=== PATIENT | male | born 1940 | race Caucasian/White ===

== ENCOUNTER 2024-12-15 19:00 | Emergency (ER) | payer OTHER, SELFPAY ==
[2024-12-15 19:00] VITALS: BP 169/69; PULSE 60; RESP 18; TEMP 36.4; O2SAT 96
--- NOTE | 2024-12-15 19:00 | RT.EKG_ITS ---
APPROVED REPORT Exam: Resting ECG Reason for Exam: Weakness Patient Location: E HR:62 bpm ECG Measurements Heart Rate 62 AXIS CA 198 P 52 QRSd 93 QRS -14 QT 474 T 24 QTc 480 Conclusion Sinus rhythm...normal P axis, V-rate 60- 99 Inferior infarct, old...Q >35mS, II III aVF sinus rhythm, left axis, normal intervals non ischemic
--- NOTE | 2024-12-15 19:15 | DI.CT_ITS ---
Exam(s) CT BRAIN NECK CTA EXAM: CT BRAIN NECK CTA CLINICAL HISTORY: dizzy, fall. TECHNIQUE: Imaging Protocol: Axial CT angiography was performed with multi- slice acquisition and multi-planar and/or 3D reconstructions. CONTRAST MATERIAL: Intravenous: Omnipaque 350 contrast volume:70 mL COMPARISON: No exams were available for comparison FINDINGS: CT Head W/O and W: Ventricles and Extra axial spaces: Normal in size and morphology for the patient's age. Hemorrhage: None. Cerebral parenchyma: There is no evidence of an acute territorial infarct. No acute mass effect is present. Midline shift: None. Brainstem/Cerebellum: Normal. Calvarium: Normal. Visualized Paranasal sinuses/Mastoids: Very mild mucosal thickening is seen. The mastoid air cells are clear. Soft Tissues: Unremarkable. Enhancement: Unremarkable. CTA Neck W: Common Carotid: Right: No dissection, occlusion or significant stenosis. Minimal atherosclerotic calcification is seen at the bifurcation. Left: No dissection, occlusion or significant stenosis. There is minimal atherosclerotic calcification at the bifurcation. External Carotid: Right: No occlusion or significant stenosis. Left: No occlusion or significant stenosis. Internal Carotid: Right: No dissection, occlusion or significant stenosis. Left: No dissection, occlusion or significant stenosis. Vertebral Artery: Right: No dissection, occlusion or significant stenosis. Left: No dissection, occlusion or significant stenosis. Lung Apices: Normal. Bones: Within normal limits for the patient's age. 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 Thyroid gland: Unremarkable. CTA Brain W: Internal Carotid Arteries: Mild atherosclerotic calcification is seen bilaterally in the cavernous portion of the internal carotid arteries, but no significant stenosis is present. There is no occlusion or aneurysm. Anterior Cerebral Arteries: Right: No aneurysm, occlusion or significant stenosis. Left: No aneurysm, occlusion or significant stenosis. Middle Cerebral Arteries: Right: No aneurysm, occlusion or significant stenosis. Left: No aneurysm, occlusion or significant stenosis. Posterior Cerebral Arteries: The left posterior cerebral artery arises from the posterior communicating artery which is a normal variant. Right: No aneurysm, occlusion or significant stenosis. Left: No aneurysm, occlusion or significant stenosis. Vertebral Arteries: Right: No aneurysm, occlusion or significant stenosis. Left: No aneurysm, occlusion or significant stenosis. Basilar Artery: No aneurysm, occlusion or significant stenosis. IMPRESSION: 1. No large vessel occlusion or significant stenosis on the CT angiography of the head. 2. No acute intracranial process. 3. No occlusion or significant stenosis on the CT angiography of the neck. 4. The preliminary [facility] report was reviewed. RADIATION DOSE DELIVERED: 2,215.9mGy.cm Total DLP DATA REPOSITORY: All CT scans at this facility are submitted to the National Radiology Data Registry (NRDR) Dose Index Registry (DIR) with the [employer] ([employer]). RADIATION OPTIMIZATION: All CT scans at this facility use at least one of these dose optimization techniques: automated exposure control; mA and/or kV adjustment per patient size (includes targeted exams where dose is matched to clinical indication); or iterative reconstruction.
--- NOTE | 2024-12-15 19:15 | DI.RAD_ITS ---
Exam(s) XR CHEST 2V PA LATERAL EXAM: XR CHEST 2V PA LATERAL CLINICAL HISTORY: dizzy fall TECHNIQUE: 2D digital imaging was performed of the chest. Three images were obtained. AP and lateral views were obtained. COMPARISON: No exams were available for comparison FINDINGS: MEDIASTINUM: Normal. HEART: Normal. PULMONARY VASCULATURE: Normal. LUNGS: Clear. PLEURAL SPACE: No pleural effusion or pneumothorax. BONE:Within normal limits for the patient's age. OTHER FINDINGS:Normal. IMPRESSION: 1. No acute pulmonary findings. 2. The preliminary [facility] report was reviewed. DATA REPOSITORY: RADIATION DOSE DELIVERED:
--- NOTE | 2024-12-15 19:22 | W.ED.GENAD ---
Discharge Plan Disposition Patient Disposition: Home Condition: Improving Discharge Details Clinical Impression: Weakness Primary Care Provider: Unknown,Unknown ED Provider: Heraclio Tse Home Meds and New Rx's Prescriptions: No Action allopurinol 200 mg tablet 200 mg PO DAILY amlodipine 10 mg tablet 10 mg PO DAILY cetirizine 10 mg tablet 10 mg PO BID duloxetine 60 mg capsule, delayed rel sprinkle 60 mg PO DAILY chlorthalidone 12.5 mg tablet 12.5 mg PO DAILY famotidine 20 mg tablet 20 mg PO BID levothyroxine 75 mcg capsule 75 mcg PO DAILY colchicine 0.6 mg capsule 0.6 mg PO DAILY PRN (Reason: gout flare) metformin 500 mg tablet 500 mg PO BID pravastatin 40 mg tablet 40 mg PO DAILY pregabalin 150 mg capsule 150 mg PO BID omeprazole 20 mg capsule,delayed release(DR/EC) 20 mg PO BID mirtazapine 45 mg tablet 45 mg PO QHS tadalafil [Cialis] 20 mg tablet 20 mg PO DAILY PRN (Reason: sexual activity) tamsulosin 0.4 mg capsule 0.4 mg PO DAILY carboxymethylcellulose sodium [Refresh Tears] 0.5 % drops 1 drp ophthalmic (eye) QID naproxen 250 mg tablet 250 mg PO BID PRN (Reason: pain) acetaminophen 500 mg capsule 1,000 mg PO TID PRN (Reason: pain) Discharge Instructions Instructions: Weakness Additional Instructions: Please follow-up with your primary care physician. Please return to the Emergency Department for any worsening symptoms HPI General Date/Time Provider Initiated Documentation: 12/15/24 19:01. HPI Narrative: 84-year-old male history of hypertension hyperlipidemia presents after fall patient felt dizzy and fell backwards hitting the back of his head no loss of consciousness. Denies chest pain shortness of breath nausea or vomiting. Related Data Home Medications ?Medication ?Instructions ?Recorded ?Confirmed acetaminophen 500 mg capsule 1,000 mg PO TID PRN pain 12/15/24 12/15/24 allopurinol 200 mg tablet 200 mg PO DAILY 12/15/24 12/15/24 amlodipine 10 mg tablet 10 mg PO DAILY 12/15/24 12/15/24 carboxymethylcellulose sodium 0.5 1 drp ophthalmic (eye) QID 12/15/24 12/15/24 % eye drops (Refresh Tears) cetirizine 10 mg tablet 10 mg PO BID 12/15/24 12/15/24 chlorthalidone 12.5 mg tablet 12.5 mg PO DAILY 12/15/24 12/15/24 colchicine 0.6 mg capsule 0.6 mg PO DAILY PRN gout flare 12/15/24 12/15/24 duloxetine 60 mg capsule,delayed 60 mg PO DAILY 12/15/24 12/15/24 release sprinkle famotidine 20 mg tablet 20 mg PO BID 12/15/24 12/15/24 levothyroxine 75 mcg capsule 75 mcg PO DAILY 12/15/24 12/15/24 metformin 500 mg tablet 500 mg PO BID 12/15/24 12/15/24 mirtazapine 45 mg tablet 45 mg PO QHS 12/15/24 12/15/24 naproxen 250 mg tablet 250 mg PO BID PRN pain 12/15/24 12/15/24 omeprazole 20 mg capsule,delayed 20 mg PO BID 12/15/24 12/15/24 release pravastatin 40 mg tablet 40 mg PO DAILY 12/15/24 12/15/24 pregabalin 150 mg capsule 150 mg PO BID 12/15/24 12/15/24 tadalafil 20 mg tablet (Cialis) 20 mg PO DAILY PRN sexual activity 12/15/24 12/15/24 tamsulosin 0.4 mg capsule 0.4 mg PO DAILY 12/15/24 12/15/24 Allergies Allergy/AdvReac Type Severity Reaction Status Date / Time atorvastatin (From Lipitor) Allergy Unknown Unknown Verified 12/15/24 19:07 General Stated Complaint: Fall/Non TraumaCriteria LUCILLE: 3 Exam Narrative Exam Narrative: General: alert, no acute distress HEENT: normocephalic, atraumatic, neck supple, pupils equal round reactive to light, moist mucous membranes, tolerating secretions, normal voice, no rhinorrhea or otorrhea Respiratory: normal respiratory effort, lungs clear bilaterally, no wheezes rales or rhonchi Cardiac: regular rate and rhythm, no murmurs rubs or gallops; equal pulses bilaterally, warm well perfused Abdominal: soft, nontender, nondistended; no organomegaly or palpable masses MSK: normal range of motion of extremities, warm, well perfused Skin: warm, dry, no rashes or lesions Neuro: AAOx3, CN II-XII intact, 5/5 strength bilateral upper and lower extremities, normal speech, no ataxia Psych: normal mood, normal affect, calm, cooperative Course Vital Signs Vital signs: Vital Signs Temperature 36.4 C L 12/15/24 19:00 Pulse 60 12/15/24 19:00 Respiratory Rate 18 12/15/24 19:00 Blood Pressure 169/69 H 12/15/24 19:00 Pulse Oximetry 96 12/15/24 19:00 Temperature 36.4 C L 12/15/24 19:00 Pulse 60 12/15/24 19:00 Respiratory Rate 18 12/15/24 19:00 Blood Pressure 169/69 H 12/15/24 19:00 Pulse Oximetry 96 12/15/24 19:00 Oxygen Delivery Method Room Air 12/15/24 19:00 Oxygen Flow Rate 0 12/15/24 19:00 Pain Level 6 12/15/24 19:00 Medical Decision Making 84-year-old male history of hypertension hyperlipidemia presents after fall from standing after feeling acutely dizzy at home fell backwards hit his head no loss of consciousness, patient alert oriented interactive EKG normal sinus rhythm normal axis no acute ischemic changes, noted to be mildly hypertensive normal heart rate afebrile nontoxic nonmeningeal no back neck thoracic or abdominal findings on examination full range of motion cranial nerves intact normal speech no truncal ataxia no focal motor deficits, consider vasovagal versus orthostatic syncope versus electrolyte derangement versus hypovolemia patient does have some evidence of dry oromucosa and skin, muscles consider arrhythmia versus ACS lower special for PE or aortic pathology low special for CVA given nonfocal on examination however given age history will obtain CT CTA head and neck, basic labs, troponin, chest x-ray, trial of light fluid patient resting comfortably asymptomatic at this time. Telemetry: 22 resting comfortably no acute distress. Awaiting imaging results for disposition. 21: 58 patient resting comfortably asymptomatic. Neurologically intact. Hemodynamically stable. CT CTA head and neck unremarkable labs unremarkable. Patient does endorse some discomfort in bilateral 2nd and 3rd digits dorsally he did fall backwards with his hands above his head perhaps striking his fingers, patient does have full range of motion, sensation and strength median radial and ulnar nerve distribution intact good capillary refill strong radial pulses. No midline spinal tenderness. Likely contusion lower suspicion for neurovascular compromise. Patient and family feel comfortable going home. Given home care instructions and return precautions PFSH All Active Problems (Updated 12/15/24 @ 22:00 by Heraclio Tse MD) Weakness (Acute) Social History Smoking/Tobacco Use Status: Former Tobacco Use Smoking risk assessment performed?: Yes Alcohol Intake: never
[2024-12-15 19:36] LABS: Abs Immature Grans 0.11 10^3/uL (0.0-0.06); HCT 33.9 % (40.0-50.0); HGB 11.8 g/dL (13.5-17.5); Immature Grans % 1.6 %; MCH 32.2 pg (27.0-33.0); MCHC 34.8 % (32.0-36.0); MCV 92 fL (80-95); MPV 10.5 fL (8.0-11.0); Platelet Count 196 10^3/uL (130-400); RBC 3.67 10^6/uL (4.36-5.78); RDW 13.7 % (11.8-14.1); RDW-SD 46.5 fL; WBC 6.79 10^3/uL (4.4-10.8)
[2024-12-15 19:49] LABS: INR 1.1 (0.9-1.1); PTT Activated 26.1 sec (20.6-30.2); Prothrombin Time 10.9 sec (9.1-11.1)
[2024-12-15 19:54] LABS: ALT 30 U/L (16-63); AST 24 U/L (15-37); Albumin 3.5 g/dL (3.4-5.0); Alkaline Phosphatase 111 U/L (46-116); Anion Gap 12.1 mmol/L (3-11); BUN 17 mg/dL (7-18); Bilirubin, Total 0.5 mg/dL (0.2-1.0); CO2 24.9 mmol/L (21.0-32.0); Calcium 9.2 mg/dL (8.5-10.1); Chloride 100 mmol/L (98-107); Estimated GFR 67.02 (mL/min/1.73m2); Glucose 150 mg/dL (74-106); Potassium 3.3 mmol/L (3.5-5.1); Sodium 137 mmol/L (136-145); Total Protein 6.9 g/dL (6.4-8.2); Troponin I 5 ng/L (<or=76)
--- NOTE | 2024-12-15 20:06 | TELEP.MEDR_ITS ---
Date of service: 12/15/24 Time of Service: 20:06 [facility] Home Med Rec Allergies Allergies: atorvastatin (From Lipitor) Allergy (Unknown, Verified 12/15/24 19:07) Unknown Interview Person Interviewed: [facility] pharmacy after-hours line Quality Quality of Interview/Accuracy of Medication List: Excellent Sources Sources used to compile medication list: Other Changes made to Home Medication List: ADDITIONS: * acetaminophen * allopurinol * amlodipine * Refresh tears * cetirizine * chlorthalidone * colchicine * duloxetine * famotidine * levothyroxine * metformin * mirtazapine * naproxen * omeprazole * pravastatin * pregabalin * tadalafil * tamsulosin DELETIONS: None CHANGES: None Additional Notes Additional Notes: With patient's permission I called the [place] pharmacy (after-hours phone line) and retrieved his current medication list; all meds were added to his chart. Recommended Changes Attestation: The home medication list is now updated to the best of my knowledge and is ready to be reconciled by the provider. Please contact the [facility] Medication Reconciliation Pharmacist at for any questions.
--- NOTE | 2024-12-15 20:06 | TELEP.MEDREC ---
Date of service: 12/15/24 Time of Service: 20:06 Telepharmacy Home Med Rec Allergies Allergies: atorvastatin (From Lipitor) Allergy (Unknown, Verified 12/15/24 19:07) Unknown Interview Person Interviewed: [facility] pharmacy after-hours line Quality Quality of Interview/Accuracy of Medication List: Excellent Sources Sources used to compile medication list: Other Changes made to Home Medication List: ADDITIONS: acetaminophen allopurinol amlodipine Refresh tears cetirizine chlorthalidone colchicine duloxetine famotidine levothyroxine metformin mirtazapine naproxen omeprazole pravastatin pregabalin tadalafil tamsulosin DELETIONS: None CHANGES: None Additional Notes Additional Notes: With patient's permission I called the [place] pharmacy (after-hours phone line) and retrieved his current medication list; all meds were added to his chart. Recommended Changes Attestation: The home medication list is now updated to the best of my knowledge and is ready to be reconciled by the provider. Please contact the [facility] Medication Reconciliation Pharmacist at for any questions.
[2024-12-15] MEDS: Normal Saline 500 ML 1000 ML IV (20:16)
[2024-12-15] MEDS: Normal Saline - Diluent 50 ML VIAL IJ (20:29)
[2024-12-15] MEDS: Omnipaque 350 MG/ML 100 ML BTL IJ (20:29)
[2024-12-15 20:55] LABS: Troponin I 5 ng/L (<or=76)
[2024-12-15 21:23] LABS: Glucose Negative (Negative)
--- NOTE | 2024-12-15 21:43 | DI.[facility]_ITS ---
PROCEDURE INFORMATION: Exam: CTA Head Without And With Contrast, Arteriography Exam date and time: 12/15/2024 8:25 PM Age: 84 years old Clinical indication: Injury or trauma; Blunt trauma; Head; Dizziness and giddiness; Injury details: Dizzy, fall TECHNIQUE: Imaging protocol: Computed tomographic angiography of the head without and with contrast. Exam focused on the arteries. 3D rendering (Not supervised by radiologist): MIP and/or 3D reconstructed images were created by the technologist. Contrast material: OMNI 350; Contrast volume: 70 ml; Contrast route: INTRAVENOUS (IV); COMPARISON: No relevant prior studies available. FINDINGS: ANTERIOR CIRCULATION: Right internal carotid artery: Intracranial segment is patent with no significant stenosis or occlusion. No aneurysm. Right middle cerebral artery: No occlusion or significant stenosis. No aneurysm. Right anterior cerebral artery: No occlusion or significant stenosis. No aneurysm. Left internal carotid artery: Intracranial segment is patent with no significant stenosis. No aneurysm. Left middle cerebral artery: No occlusion or significant stenosis. No aneurysm. Left anterior cerebral artery: No occlusion or significant stenosis. No aneurysm. POSTERIOR CIRCULATION: Right vertebral artery: No occlusion or significant stenosis. No aneurysm. Left vertebral artery: No occlusion or significant stenosis. No aneurysm. Basilar artery: No occlusion or significant stenosis. No aneurysm. Right posterior cerebral artery: No occlusion or significant stenosis. No aneurysm. Left posterior cerebral artery: No occlusion or significant stenosis. No aneurysm. HEAD: Brain: No acute intracranial hemorrhage or mass lesions. No midline shift. Normal vasquez-white differentiation. There moderate are scattered deep and periventricular white matter changes likely associated with chronic microvascular ischemia. Cerebral ventricles: The ventricles and sulci are prominent suggesting volume loss greater than expected for patient age. Bones: Unremarkable. No acute fracture. Paranasal sinuses: Visualized sinuses are normal. No fluid levels. Mastoid air cells: Visualized mastoids are normal. No mastoid effusion. Salivary glands: The right submandibular gland is not visualized and is likely surgically absent. Soft tissues: Unremarkable. IMPRESSION: 1. No stenosis, occlusion, or aneurysm. 2. No acute intracranial findings. PROCEDURE INFORMATION: Exam: CTA Neck Without And With Contrast Exam date and time: 12/15/2024 8:25 PM Age: 84 years old Clinical indication: Injury or trauma; Blunt trauma; Head; Dizziness and giddiness; Injury details: Dizzy, fall TECHNIQUE: Imaging protocol: Computed tomographic angiography of the neck without and with contrast. Exam focused on the cervical segments of the vasculature. 3D rendering (Not supervised by radiologist): MIP and/or 3D reconstructed images were created by the technologist. Contrast material: OMNI 350; Contrast volume: 70 ml; Contrast route: INTRAVENOUS (IV); COMPARISON: No relevant prior studies available. FINDINGS: Right common carotid artery: No stenosis. No dissection or occlusion. Right internal carotid artery: No stenosis of the extracranial segment. No dissection or occlusion. Right external carotid artery: No occlusion or stenosis of the origin. Left common carotid artery: No stenosis. No dissection or occlusion. Left internal carotid artery: No stenosis of the extracranial segment. No dissection or occlusion. Left external carotid artery: No occlusion or stenosis of the origin. Right vertebral artery: No stenosis. No dissection or occlusion. Left vertebral artery: No stenosis. No dissection or occlusion. Soft tissues: Normal. No significant soft tissue swelling. Bones/joints: Mild degenerative changes are present within the cervical spine including intervertebral disc space narrowing, endplate sclerosis, and osteophytosis. Lungs: The pulmonary apices are clear. There is mild centrilobular emphysema at the right pulmonary apex. IMPRESSION: No stenosis, occlusion, or aneurysm. REFERENCES: NASCET CRITERIA. The degree of stenosis in the cervical segment of the internal carotid artery is based on NASCET criteria. Normal is no stenosis. Mild is less than 50% stenosis. Moderate is 50-69% stenosis. Severe is 70% to 99% stenosis. Total occlusion is no detectable patent lumen. Dictated and Authenticated by: Elysia Izaguirre MD. Orderin Dedrick Pulliam MD
--- NOTE | 2024-12-15 21:44 | DI.[facility]_ITS ---
PROCEDURE INFORMATION: Exam: XR Chest Exam date and time: 12/15/2024 8:44 PM Age: 84 years old Clinical indication: Injury or trauma; Other: Dizzy fall; Blunt trauma (contusions or hematomas); Additional info: Dizzy, fall TECHNIQUE: Imaging protocol: Radiologic exam of the chest. Views: 2 views. COMPARISON: CT BRAIN NECK CTA 12/15/2024 8:25 PM FINDINGS: Lungs: No pulmonary consolidation. Pleural spaces: No pleural effusion or pneumothorax. Heart/Mediastinum: The heart is normal size. Bones/joints: No displaced rib fractures visualized. IMPRESSION: No acute cardiopulmonary findings. Dictated and Authenticated by: Elysia Izaguirre MD. Orderin Dedrick Pulliam MD
[2024-12-15 22:00] VITALS: BP 146/79; PULSE 70; RESP 18; O2SAT 94
== END 2024-12-15 22:18 | disposition home or self-care (01) ==
PROVIDERS: Emergency Provider Emergency Medicine
DX: R53.1 Weakness (principal); I10 Essential (primary) hypertension; E78.5 Hyperlipidemia, unspecified; Z87.891 Personal history of nicotine dependence
CPT/HCPCS: 70496; 70498; 80053; 82962; 93005; 99285; 71046; 81003; 84484; 85025; 85610; 85730; 93010; 99284; J3490